=== PATIENT | male | born 1935 | race Caucasian/White ===

== ENCOUNTER 2021-04-23 01:30 | Inpatient (IN) | payer MEDICARE ==
[~2021-04-23] VITALS: Ht 167.6 cm; Wt 73.5 kg
[~2021-04-23 01:30] MED LIST: CATAPRES0.2 MG PO; COZAAR50 MG PO; DIABETA 2.5 MG2.5 MG PO; ECOTRIN325 MG PO; FINASTERIDE5 MG PO; FLOMAX 0.4 MG0.4 MG PO; FUROSEMIDE20 MG PO; FUROSEMIDE40 MG PO; GLUCOPHAGE 850850 MG PO; KLOR-CON 1010 MEQ PO; LASIX20 MG PO; LIPITOR TAB 2020 MG PO; LOPRESSOR 25 MG25 MG PO; LOPRESSOR 50 MG50 MG PO; NORVASC 5 MG TAB5 MG PO; OMEPRAZOLE20 M1 PO; PLAVIX 75 MG TA75 MG PO
[2021-04-23 03:02] LABS: RED BLOOD COUNT 4.13 M/UL (4.20-5.50); WHITE BLOOD COUNT 12.1 K/UL (4.5-11.0)
[2021-04-23 03:17] LABS: BUN/CREATININE RATIO 21 (0-10)
[2021-04-23] MEDS ORDERED: JANUVIA100 MG PO (10:45)
[2021-04-23] MEDS ORDERED: ELIQUIS2.5 MG PO (10:45)
[2021-04-23] MEDS ORDERED: FINASTERIDE5 MG PO (10:45)
[2021-04-23] MEDS ORDERED: CLONIDINE HCL0.2 MG PO ×2 (10:46→12:03)
[2021-04-23] MEDS ORDERED: ELIQUIS 2.5 MG2.5 MG PO (12:03)
[2021-04-23] MEDS ORDERED: FERREX 150150 MG PO (12:04)
[2021-04-23] MEDS ORDERED: METOPROLOL TART50 MG PO (12:04)
[2021-04-23] MEDS ORDERED: LOSARTAN POTAS100 MG PO (12:04)
[2021-04-23] MEDS ORDERED: ASPIRIN EC81 MG PO (12:05)
[2021-04-23] MEDS ORDERED: IPRAT-ALBUT 0.5-3 ML INH (12:05)
[2021-04-23] MEDS ORDERED: METFORMIN HCL1000 MG PO (12:08)
[2021-04-24 03:51] LABS: HEMOGLOBIN 9.7 gm/dl (14.0-17.5); RED BLOOD COUNT 4.04 M/UL (4.20-5.50); WHITE BLOOD COUNT 10.9 K/UL (4.5-11.0)
[2021-04-24 04:41] LABS: BUN/CREATININE RATIO 21 (0-10)
[2021-04-25 01:49] LABS: HEMOGLOBIN 9.9 gm/dl (14.0-17.5); RED BLOOD COUNT 4.17 M/UL (4.20-5.50); WHITE BLOOD COUNT 11.4 K/UL (4.5-11.0)
[2021-04-25 02:40] LABS: BUN/CREATININE RATIO 26 (0-10)
[2021-04-26 03:33] LABS: HEMOGLOBIN 10.3 gm/dl (14.0-17.5); RED BLOOD COUNT 4.28 M/UL (4.20-5.50); WHITE BLOOD COUNT 10.7 K/UL (4.5-11.0)
[2021-04-26 04:48] LABS: BUN/CREATININE RATIO 23 (0-10)
[2021-04-26] MEDS ORDERED: FUROSEMIDE40 MG PO (10:28)
[2021-04-26] MEDS ORDERED: AUGMENTIN 875-1 EACH PO (10:37)
--- NOTE | 2021-04-26 14:47 | NUR ---
PT O2 SAT ON ROOM AIR = 87%
== END 2021-04-26 17:31 | disposition home health service (06) | DRG 291 ==
LOC: ER1 01:30 → CDU 04:50 → PROG CARE 04:50
PROVIDERS: Internal Medicine; Physician Assistant; ADMIT Internal Medicine
PROC: B24BZZ4 Ultrasonography of Heart with Aorta, Transesophageal (ICD-10-PCS; principal; 2021-04-23)
PROC: 5A09357 Assistance with Respiratory Ventilation, Less than 24 Consecutive Hours, Continuous Positive Airway Pressure (ICD-10-PCS; 2021-04-23)
DX: I11.0 Hypertensive heart disease with heart failure (principal); G93.41 Metabolic encephalopathy; J96.01 Acute respiratory failure with hypoxia; Z20.822 Contact with and (suspected) exposure to COVID-19; I50.33 Acute on chronic diastolic (congestive) heart failure; N39.0 Urinary tract infection, site not specified; E44.0 Moderate protein-calorie malnutrition; E87.2 Acidosis; I48.20 Chronic atrial fibrillation, unspecified; D64.9 Anemia, unspecified; I27.20 Pulmonary hypertension, unspecified; I08.1 Rheumatic disorders of both mitral and tricuspid valves; I16.0 Hypertensive urgency; N40.0 Benign prostatic hyperplasia without lower urinary tract symptoms; I48.0 Paroxysmal atrial fibrillation; F03.90 Unspecified dementia, unspecified severity, without behavioral disturbance, psychotic disturbance, mood disturbance, and anxiety; I25.10 Atherosclerotic heart disease of native coronary artery without angina pectoris; B95.2 Enterococcus as the cause of diseases classified elsewhere; E78.5 Hyperlipidemia, unspecified; E11.9 Type 2 diabetes mellitus without complications; R53.81 Other malaise; Z95.1 Presence of aortocoronary bypass graft; Z79.01 Long term (current) use of anticoagulants; Z79.82 Long term (current) use of aspirin; Z68.26 Body mass index [BMI] 26.0-26.9, adult
CPT/HCPCS: ECHO; 36415; 36600; 51702; 70450; 70551; 71045; 80053; 80202; 81001; 82140; 82550; 82553; 82803; 82962; 83036; 83605; 83735; 83880; 84100; 84132; 84439; 84443; 84484; 84550; 85025; 85027; 85610; 85652; 85730; 86140; 87040; 87077; 87086; 87186; 93306; 94640; 94660; 94760; 96374; 96375; 97162; 97530-GP-CQ; 99285; J0360; J0696; J1630; J1940; J3370; J3480; J3486; J7050; J7070; U0002

== ENCOUNTER → 2021-05-23 | Outpatient (CLI) | payer MEDICARE ==
[~2021-05-23] MED LIST changes: +ASPIRIN EC81 MG PO; +AUGMENTIN 875-1 EACH PO; +CLONIDINE HCL0.2 MG PO; +ELIQUIS 2.5 MG2.5 MG PO; +ELIQUIS2.5 MG PO; +FERREX 150150 MG PO; +IPRAT-ALBUT 0.5-3 ML INH; +JANUVIA100 MG PO; +LOSARTAN POTAS100 MG PO; +METFORMIN HCL1000 MG PO; +METOPROLOL TART50 MG PO
== END ==
LOC: HEART 5 11:42
DX: I27.20 Pulmonary hypertension, unspecified (principal); R09.02 Hypoxemia; R91.8 Other nonspecific abnormal finding of lung field; J90 Pleural effusion, not elsewhere classified
CPT/HCPCS: 71046; 94060

== ENCOUNTER 2021-07-11 11:07 | Inpatient (IN) | payer MEDICARE ==
[~2021-07-11] VITALS: Ht 177.8 cm; Wt 75.3 kg
[~2021-07-11 11:07] MED LIST changes: -IPRAT-ALBUT 0.5-3 ML INH
[2021-07-11 12:27] LABS: BUN/CREATININE RATIO 21 (0-10)
[2021-07-11 14:34] LABS: RED BLOOD COUNT 2.72 M/UL (4.20-5.50); WHITE BLOOD COUNT 19.3 K/UL (4.5-11.0)
[2021-07-11 14:38] LABS: HEMOGLOBIN 6.1 gm/dl (14.0-17.5)
[2021-07-12 02:37] LABS: WHITE BLOOD COUNT 22.5 K/UL (4.5-11.0)
[2021-07-12 02:40] LABS: HEMOGLOBIN 10.9 gm/dl (14.0-17.5); RED BLOOD COUNT 4.15 M/UL (4.20-5.50)
[2021-07-12] MEDS ORDERED: DONEPEZIL HCL5 MG PO (07:38)
[2021-07-12] MEDS ORDERED: ALBUTEROL1.25 MG/3 INH (12:05)
[2021-07-13 05:42] LABS: HEMOGLOBIN 11.4 gm/dl (14.0-17.5); RED BLOOD COUNT 4.37 M/UL (4.20-5.50); WHITE BLOOD COUNT 22.2 K/UL (4.5-11.0)
--- NOTE | 2021-07-13 13:53 | NUR ---
SHERRI CONTACTED PER PROTOCOL DUE TO [employer] OF 3T. OK TO WITHDRAW CARE PER SHERRI. CALL WITH TIME OF CARDIAC IF/WHEN IT OCCURS.
[2021-07-14 05:08] LABS: HEMOGLOBIN 10.4 gm/dl (14.0-17.5)
[2021-07-14 05:16] LABS: RED BLOOD COUNT 3.92 M/UL (4.20-5.50); WHITE BLOOD COUNT 11.2 K/UL (4.5-11.0)
[2021-07-15 05:40] LABS: RED BLOOD COUNT 3.88 M/UL (4.20-5.50)
[2021-07-15 05:41] LABS: WHITE BLOOD COUNT 7.9 K/UL (4.5-11.0)
--- NOTE | 2021-07-15 21:01 | NUR ---
patient cleaned up, [facility] called spoke with mike
== END 2021-07-15 17:28 | disposition expired | DRG 870 ==
LOC: ER1 11:07 → CCU 13:37
PROVIDERS: Emergency Medicine; Internal Medicine; Physician Assistant; ADMIT Internal Medicine
PROC: 0BH17EZ Insertion of Endotracheal Airway into Trachea, Via Natural or Artificial Opening (ICD-10-PCS; principal; 2021-07-11)
PROC: 5A1955Z Respiratory Ventilation, Greater than 96 Consecutive Hours (ICD-10-PCS; 2021-07-11)
PROC: 03HY32Z Insertion of Monitoring Device into Upper Artery, Percutaneous Approach (ICD-10-PCS; 2021-07-11)
PROC: 05HN33Z Insertion of Infusion Device into Left Internal Jugular Vein, Percutaneous Approach (ICD-10-PCS; 2021-07-11)
PROC: B544ZZA Ultrasonography of Left Jugular Veins, Guidance (ICD-10-PCS; 2021-07-11)
PROC: 30233N1 Transfusion of Nonautologous Red Blood Cells into Peripheral Vein, Percutaneous Approach (ICD-10-PCS; 2021-07-11)
PROC: 4A133B1 Monitoring of Arterial Pressure, Peripheral, Percutaneous Approach (ICD-10-PCS; 2021-07-11)
PROC: 4A133J1 Monitoring of Arterial Pulse, Peripheral, Percutaneous Approach (ICD-10-PCS; 2021-07-11)
PROC: 3E043XZ Introduction of Vasopressor into Central Vein, Percutaneous Approach (ICD-10-PCS; 2021-07-11)
PROC: B24BZZZ Ultrasonography of Heart with Aorta (ICD-10-PCS; 2021-07-12)
PROC: 4A00X4Z Measurement of Central Nervous Electrical Activity, External Approach (ICD-10-PCS; 2021-07-13)
DX: A41.9 Sepsis, unspecified organism (principal); R65.21 Severe sepsis with septic shock; I50.33 Acute on chronic diastolic (congestive) heart failure; N17.0 Acute kidney failure with tubular necrosis; K72.00 Acute and subacute hepatic failure without coma; J18.9 Pneumonia, unspecified organism; R40.20 Unspecified coma; J98.11 Atelectasis; G93.1 Anoxic brain damage, not elsewhere classified; D62 Acute posthemorrhagic anemia; I48.20 Chronic atrial fibrillation, unspecified; R18.8 Other ascites; I46.9 Cardiac arrest, cause unspecified; R57.0 Cardiogenic shock; Z20.822 Contact with and (suspected) exposure to COVID-19; I48.91 Unspecified atrial fibrillation; I25.10 Atherosclerotic heart disease of native coronary artery without angina pectoris; E78.5 Hyperlipidemia, unspecified; N40.0 Benign prostatic hyperplasia without lower urinary tract symptoms; R00.1 Bradycardia, unspecified; R40.2433 Glasgow coma scale score 3-8, at hospital admission; E87.5 Hyperkalemia; I11.0 Hypertensive heart disease with heart failure; I27.20 Pulmonary hypertension, unspecified; L89.312 Pressure ulcer of right buttock, stage 2; E11.9 Type 2 diabetes mellitus without complications; Z51.5 Encounter for palliative care; Z79.01 Long term (current) use of anticoagulants; Z95.1 Presence of aortocoronary bypass graft; Z98.890 Other specified postprocedural states
CPT/HCPCS: ECHO; 31500; 36415; 36430; 36600; 70450; 71045; 74018; 80048; 80053; 81001; 82436; 82550; 82553; 82803; 82962; 83605; 83690; 83735; 83874; 83880; 84133; 84300; 84439; 84443; 84484; 85025; 85027; 85610; 85730; 86850; 86900; 86901; 86920; 87040; 87070; 87086; 87205; 93005; 93306; 93970; 94002; 94003; 94760; 95824; 96374; 99285; C9113; J0171; J0360; J0461; J0692; J2020; J2370; J3010; J7030; J7040; J7070; P9016; Q9967; U0002